=== PATIENT | male | born 1995 | race Caucasian/White ===

== ENCOUNTER 2023-07-14 09:35 | Emergency (ER) | payer OTHER, SELFPAY ==
--- NOTE | ~2023-07-14 | XR_ITS ---
XR wrist RT min 3V 07/14/2023 10:07 INDICATION: Right wrist pain PROCEDURE: 4 views right wrist COMPARISON: No prior studies for comparison. FINDINGS: Fracture, dislocation or subluxation is not identified. The soft tissues appear within norm al limits. No foreign bodies are identified. IMPRESSION: 1: NO ACUTE BONE OR JOINT ABNORMALITY IDENTIFIED. Reviewed, dictated and finalized at location B.
[2023-07-14 09:35] VITALS: BP 161/116; PULSE 100; RESP 20; TEMP 36.1; O2SAT 96
[2023-07-14 09:43] VITALS: BP 161/116; PULSE 100; RESP 20; TEMP 36.1; O2SAT 96
--- NOTE | 2023-07-14 10:07 | ED.UPPEXIN ---
HPI - Extremity Injury (Upper) General Chief Complaint: Extremity Injury, Upper Stated Complaint: RT HAND INJURY Time Seen by Provider: 07/14/23 09:40 Source: patient Mode of arrival: ambulatory Limitations: no limitations History of Present Illness HPI narrative: 27 year old male presents to the Emergency Department complaining of anterior right wrist injury and pain. 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 complaint: injury to: right Onset (ago): day(s) (last night) Other Extremity Injury: Right: wrist Other injuries: none Place: work Severity: mild Relieving factors: none Exacerbating factors: movement of extremity Context: other (strained while attempting to restrain a patient) Associated symptoms: denies other symptoms and numbness (some tingling to all finger tip pads) Related Data Home Medications Medication Instructions Recorded Confirmed No Home Medications 07/14/23 07/14/23 Allergies Allergy/AdvReac Type Severity Reaction Status Date / Time No Known Allergies Allergy Verified 07/14/23 09:43 Review of Systems Review of Systems: All systems reviewed & are unremarkable except as noted in HPI and below Constitutional: Constitutional: Reports as per HPI Eyes: Eyes: Reports as per HPI ENT: Reports system reviewed and no additional complaints, except as documented Cardiovascular: Cardiovascular: Reports as per HPI Respiratory: Respiratory: Reports as per HPI Gastrointestinal: Gastrointestinal: Reports as per HPI Genitourinary: Genitourinary: Reports no additional male genitourinary complaints Musculoskeletal: Musculoskeletal: Reports no additional musculoskeletal complaints Neurologic: Reports system reviewed and no additional complaints, except as documented, Denies focal weakness and Reports numbness (tingling to all finger tip pads) [facility] Social History Social History Smoking status: Never smoker Exam Const: General: healthy appearing Nutritional Appearance: obese Orientation/consciousness: patient oriented x3 Limitations: no limitations HENMT: Head: normal to inspection Ears: external ears normal Face/Nose/Sinus: Normal external nose present Face and sinus: normal facial exam Eyes: Conjunctivae: conjunctivae normal Pupils: Equal, round and reactive pupils present EOM: EOMs intact bilaterally Direct Ophthalmoscopy: no photophobia Neck: Neck: normal visual inspection Chest: Chest palpation & inspection: normal inspection of the chest Resp: Effort & Inspection: normal respiratory effort Cardio: Rate: regular rate GI: Inspection: non-distended Skin: General skin exam: normal color Rashes: no rashes Wounds: no wounds Neuro: General: patient oriented x3 and moves all extremities Cranial nerves: Yes Nystagmus not present Speech: normal speech Gait exam (Neuro): Normal gait present Other: grossly normal Extrem: General: normal to inspection Other: tender to palpation anterior right wrist, NV intact. 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 States injured last night while restraining psych patient. PE: no obvious deformity, erythema, edema. Tender to palpation anterior right wrist. XR R Wrist: negative Tx: leroy wrap Instructions Vital Signs Vital signs: Vital Signs Temperature 36.1 C L 07/14/23 09:35 Pulse Rate 100 07/14/23 09:35 Respiratory Rate 20 07/14/23 09:35 Blood Pressure 161/116 H 07/14/23 09:35 Pulse Oximetry 96 07/14/23 09:35 Oxygen Delivery Room Air 07/14/23 09:35 Temperature 36.1 C L 07/14/23 09:43 Pulse Rate 100 07/14/23 09:43 Respiratory Rate 20 07/14/23 09:43 Blood Pressure 161/116 H 07/14/23 09:43 Pulse Oximetry 9
[2023-07-14 10:16] VITALS: BP 154/101
== END 2023-07-14 10:31 | disposition home or self-care (01) ==
PROVIDERS: Emergency Provider Emergency Medicine
DX: S63.501A Unspecified sprain of right wrist, initial encounter (principal); T14.90XA Injury, unspecified, initial encounter
CPT/HCPCS: 73110; 99283

== ENCOUNTER 2023-12-26 15:03 | Emergency (ER) | payer OTHER, SELFPAY ==
--- NOTE | ~2023-12-26 | CT_ITS ---
EXAMINATION: CT abdomen pelvis w con DATE: 12/26/2023 17:28 INDICATION: abdominal pain x1 week TECHNIQUE: Computed tomography (CT) of the abdomen and pelvis was performed with 100 mL Omnipaque-350 intravenous contrast. Automated exposure control and iterative reconstruction technique were employe d. The dose-length product was 1754.15 mGy-cm. COMPARISON: None. FINDINGS: Lower thorax: Unremarkable Liver: Enlarged. Diffusely low-density parenchyma Biliary/Gallbladder: Gallbladder is normal. No bile duct dilation. Pancreas: No mass or duct dilation. Spleen: Enlarged. Adrenals:No mass. Kidneys: No suspicious mass, obstructing stone, or hydronephrosis. GI tract: No small or large bowel dilation. Normal appendix. Mesentery/Peritoneum: No ascites, mass, or free air. Retroperitoneum: No mass. Pelvis: Pelvic organs are within normal limits. Soft Tissues: Small and comp care fat-containing left inguinal and umbilical hernias. Bones: No acute osseous finding. IMPRESSION: Hepatosplenomegaly. Hepatic steatosis. Otherwise unremarkable CT abdomen and pelvis findings. Reviewed, dictated and finalized at location K.
[2023-12-26 15:03] VITALS: BP 152/88; PULSE 107; RESP 18; TEMP 37; O2SAT 100
--- NOTE | 2023-12-26 15:23 | ECG_ITS ---
Test Date: 2023-12-26 15:37:49 Measurements Intervals Twining Rate: 104 P: 23 OH: 165 QRS: -10 QRSD: 98 T: 1 QT: 325 QTc: 429 Interpretive Statements SINUS TACHYCARDIA MINOR RV CONDUCTION ABNORMALITY LOW-VOLTAGE QRS ABNORMAL RHYTHM ECG No previous ECG available for comparison Electronically Signed On 12-28-2023 07:35:21 CDT by Kan Loera M.D.
[2023-12-26] MEDS: SODIUM CHLORIDE 0.9% IV 1,000 ML 999 ML IV CONT (15:36)
[2023-12-26] MEDS: PANTOPRAZOLE SODIUM IV 40 MG VIAL 80 MG IV PUSH (15:38)
[2023-12-26 16:46] LABS: Hematocrit 36.5 % (40.0-54.0); Hemoglobin 12.2 g/dL (14.0-18.0); Mean Corpuscular HGB Conc 33.4 g/dL (32-36); Mean Corpuscular Hemoglobin 28.7 pg (27.0-31.0); Mean Corpuscular Volume 85.9 fL (78.0-102.0); Mean Platelet Volume 10.9 fl (8.7-11.0); Platelet Count Result 168 K/mm3 (150-420); Red Blood Count 4.25 M/mm3 (4.70-6.10); Red Cell Distribution Width 12.8 % (11.6-14.4); White Blood Count 4.2 K/mm3 (4.8-10.8)
[2023-12-26 16:48] VITALS: BP 137/87; PULSE 102; RESP 16; O2SAT 100
[2023-12-26 16:57] LABS: INR 1.1; Partial Thromboplastin Time 29.9 Sec (23.9-30.70); Prothrombin Time 11.5 Seconds (9.50-12.1)
[2023-12-26 17:02] LABS: Alanine Aminotransferase 72 U/L (16-63); Albumin Level 3.4 g/dL (3.4-5.0); Alkaline Phosphatase 67 U/L (46-116); Anion Gap 7 mmol/L (4-12); Aspartate Amino Transferase 30 U/L (15-37); Bilirubin,Total 0.6 mg/dL (0.00-1.00); Blood Urea Nitrogen 11 mg/dL (7-18); Calcium 8.4 mg/dL (8.5-10.1); Carbon Dioxide 28 mmol/L (21-32); Chloride 100 mmol/L (98-108); Estimated CRCL calculation 145 ml/min; Estimated Glomerular Filt Rate > 60; Glucose 102 mg/dL (70-99); Lipase 27 U/L (16-77); Osmolality Calculated 279 mOsm/kg (285-295); Potassium 3.9 mmol/L (3.5-5.1); Sodium 135 mmol/L (136-145); Total Protein 6.7 g/dL (6.4-8.2); Troponin I 4.1 ng/L (0.00-60.4)
[2023-12-26 17:04] LABS: Lactic Acid Reflex 0.7 mmol/L (0.4-2.0)
[2023-12-26 17:13] LABS: Add Urine Microscopic? NO; Appearance Urine Clear (Clear); Bilirubin Urine Negative (Negative); Blood Urine Negative (Negative); Color Urine Light Yellow (Yellow); Glucose Urine UA Negative (Negative); Ketones Urine Negative (Negative); Leukocyte Esterase Ur Negative LEU/UL (Negative); Nitrate Urine Negative (Negative); Protein Urine Negative (Negative); Urobilinogen Urine 0.2 mg/dL (0.2-1.0)
[2023-12-26 17:37] LABS: Band Neutrophils Percent 1 % (0-6); Eosinophils Absolute Manual 0.12 K/mm3 (0.02-0.50); Eosinophils Percent Manual 3 % (1-6); Lymphocytes Absolute Manual 1.38 K/mm3 (1.1-4.5); Lymphocytes Percent Manual 33 % (18-44); Monocytes Absolute Manual 0.33 K/mm3 (0.1-0.90); Monocytes Percent Manual 8 % (3-9); Neutrophils Absolute Manual 2.35 K/mm3 (1.3-6.7); Neutrophils Percent Manual 55 % (46-73); Platelet Estimate Adequate (Adequate); Total Cells Counted 100
[2023-12-26 17:38] LABS: Atypical Lymphocytes Present; Large Platelets Present; Platelet Clumps Present; Schistocytes None Seen
--- NOTE | 2023-12-26 17:42 | ED.ABDPAIN ---
HPI - Abdominal Pain General Chief Complaint: Abdominal Pain Stated Complaint: abdominal pain Time Seen by Provider: 12/26/23 15:23 Source: patient Mode of arrival: ambulatory Limitations: no limitations History of Present Illness HPI narrative: this is a 28-year-old male presents with abdominal pain epigastric and umbilical with some no nausea vomiting no diarrhea constipation he has been having this abdominal pain for the last week or so and is related to meals, initially if eating something would exacerbate his discomfort with no fever chills no chest pain no shortness of breath. MD elicited complaint: abdominal pain Onset (ago): week(s) Pain Consistency: constant Related Data Allergies Allergy/AdvReac Type Severity Reaction Status Date / Time No Known Allergies Allergy Verified 07/14/23 09:43 Review of Systems Review of Systems: All systems reviewed & are unremarkable except as noted in HPI and below PMFSH Past Medical History Medical History Patient denies medical problems Social History Social History Smoking status: Never smoker Exam Const: General: healthy appearing Nutritional Appearance: well nourished Orientation/consciousness: patient oriented x3 Limitations: no limitations Eyes: Conjunctivae: conjunctivae normal Neck: Neck: normal visual inspection, no lymphadenopathy and no meningeal signs Chest: Chest palpation & inspection: normal inspection of the chest Resp: Effort & Inspection: normal respiratory effort Auscultation: clear to auscultation bilaterally Cardio: Rate: regular rate Rhythm: regular rhythm GI: GI Palp: Yes Soft to palpation and Yes Tenderness to palpation present (GI) Auscultation: normal bowel sounds : General: Yes bladder normal to palpation Urinary Catheter: Urinary Catheter: patent and draining Skin: General skin exam: normal color Rashes: no rashes Neuro: General: patient oriented x3, moves all extremities, no meningeal signs and no focal motor deficits Course Course Emergency Course: CT scan shows some mild hepatic fatty liver with mild splenomegaly with no acute abdominal process, labs performed were unremarkable patient did receive IV fluids and IV Protonix, after the IV Protonix patient states his symptoms have improved. Vital Signs Vital signs: Vital Signs Temperature 37.0 C 12/26/23 15:03 Pulse Rate 107 H 12/26/23 15:03 Respiratory Rate 18 12/26/23 15:03 Blood Pressure 152/88 H 12/26/23 15:03 Pulse Oximetry 100 12/26/23 15:03 Oxygen Delivery Room Air 12/26/23 15:03 Temperature 37.0 C 12/26/23 15:03 Pulse Rate 102 H 12/26/23 16:48 Respiratory Rate 16 12/26/23 16:48 Blood Pressure 137/87 12/26/23 16:48 Pulse Oximetry 100 12/26/23 16:48 Oxygen Delivery Room Air 12/26/23 16:48 MDM - Abdominal Pain Lab Data 12/26/23 16:39 12/26/23 16:39 Labs: Lab Results 12/26/23 Range/Units 16:39 WBC 4.2 L (4.8-10.8) K/mm3 RBC 4.25 L (4.70-6.10) M/mm3 Hgb 12.2 L (14.0-18.0) g/dL Hct 36.5 L (40.0-54.0) % MCV 85.9 (78.0-102.0) fL MCH 28.7 (27.0-31.0) pg MCHC 33.4 (32-36) g/dL RDW 12.8 (11.6-14.4) % Plt Count 168 (150-420) K/mm3 MPV 10.9 (8.7-11.0) fl Immature Gran % (Auto) Not Reportable Neut % (Auto) Not Reportable Lymph % (Auto) Not Reportable Bremer % (Auto) Not Reportable Eos % (Auto) Not Reportable Baso % (Auto) Not Reportable Lymph # (Auto) Not Reportable Bremer # (Auto) Not Reportable Eos # (Auto) Not Reportable Baso # (Auto) Not Reportable Abs Immat Gran (auto) Not Reportable Absolute Neuts (auto) Not Reportable Absolute Nucleated RBC Not Reportable Total Counted 100 Neutrophils % (Manual) 55 (46-73) % Band Neutrophils % 1 (0-6) % Lymphocytes % (Manual) 33 (18-44) % Monocytes %
[2023-12-26 17:51] VITALS: BP 138/88; PULSE 74; RESP 18; TEMP 36.6; O2SAT 98
== END 2023-12-26 17:51 | disposition home or self-care (01) ==
PROVIDERS: Emergency Provider Emergency Medicine
DX: R10.13 Epigastric pain (principal)
CPT/HCPCS: 36415; 74177; 80053; 81003; 83605; 83690; 84484; 85025; 85610; 85730; 93005; 96361; 96374; 99284; J2470; J7030; Q9967